=== PATIENT | female | born 1970 | race Asian ===

== ENCOUNTER 2021-10-28 09:13 | Outpatient (CLI) | payer BC | END 2021-10-28 09:14 | disposition home or self-care (01) | LOC: CSHMRI 09:13 | PROVIDERS: ATTEND Neurological Surgery | DX: M54.16 Radiculopathy, lumbar region (principal); M25.561 Pain in right knee; M47.816 Spondylosis without myelopathy or radiculopathy, lumbar region; M47.817 Spondylosis without myelopathy or radiculopathy, lumbosacral region; M17.11 Unilateral primary osteoarthritis, right knee; S89.81XS Other specified injuries of right lower leg, sequela | CPT/HCPCS: 72148 ==

== ENCOUNTER 2022-05-13 09:52 | Outpatient (CLI) | payer BC ==
[~2022-05-13 09:52] MED LIST: Magnevist 469MG/ML 20 ML VIAL ONE
== END 2022-05-13 09:53 | disposition home or self-care (01) ==
LOC: CSHMRI 09:52
PROVIDERS: ATTEND Family Medicine
DX: H46.9 Unspecified optic neuritis (principal)
CPT/HCPCS: 70543; A9579

== ENCOUNTER 2022-08-25 13:51 | Outpatient (CLI) | payer BC | END 2022-08-25 13:52 | disposition home or self-care (01) | LOC: CSHRAD 13:51 | PROVIDERS: ATTEND Nurse Practitioner Adult Health | DX: M25.511 Pain in right shoulder (principal); M75.31 Calcific tendinitis of right shoulder ==